=== PATIENT | female | born 1960 | race Caucasian/White ===

== ENCOUNTER 2023-07-25 22:00 | Emergency (ER) | payer MEDICARE, MEDICAID, SELFPAY ==
--- NOTE | ~2023-07-25 | XR_ITS ---
EXAMINATION: XR KNEE, RIGHT CLINICAL INFORMATION: Pain COMPARISON: None available. TECHNIQUE: Four views of the right knee. FINDINGS: The bone mineralization is normal. The joint spaces are maintained. There is no fracture. There is no significant joint effusion. XR/XR knee RT 2V IMPRESSION: No significant abnormality identified.
[2023-07-25 23:18] VITALS: BP 124/53; PULSE 79; RESP 18; TEMP 36.6; O2SAT 96; BMI 29.1
--- NOTE | 2023-07-26 00:31 | ED_ITS ---
HPI - Extremity Problem General Chief complaint: Extremity Problem Stated complaint: R knee swelling Time Seen by Provider: 07/26/23 00:17 Source: patient Mode of arrival: ambulatory Limitations: no limitations History of Present Illness HPI Narrative: 63 yo female with HTN, anxiety/depression, R knee arthritis used to see [facility] last steroid injection 2 years ago comes in with aches to R knee for 1 week no new trauma fevers, swelling could not get comfortable last night. Wants ortho referral and steroid injection MD Complaint: joint pain Onset (ago): month(s) Pain Consistency: intermittent Location: right and knee Quality: aching and dull Radiation: none Relieving factors: immobilization Exacerbating factors: walking and exertion Associated symptoms: denies other symptoms Context: other (arthritis) Related Data Previous Rx's Medication Instructions Recorded tramadol 50 mg tablet 50 mg PO BID PRN pain #14 tabs 07/26/23 Allergies Allergy/AdvReac Type Severity Reaction Status Date / Time No Known Allergies Allergy Unverified 08/02/20 15:54 Review of Systems Review of Systems: Constitutional : No Fever, No Chills Cardiovascular : No Chest Pain, No SOB Respiratory : No Cough, No Dyspnea Gastrointestinal : No Nausea, No Vomiting, No Diarrhea, No abdominal Pain Musculoskeletal : positive joint pain, No Myalgias, No Joint Swelling Skin : No Skin lacerations, No rash Neuro : No Weakness, No Numbness, No Loss of Consciousness, No Dizziness, No Headache Psych : No Anxiety/Panic, No Depression All other systems reviewed and are negative [facility] Past Medical History Attestation statement: The following information was validated with the patient. Medical History (Updated 07/26/23 @ 00:45 by Pinky White DO) HTN (hypertension) Anxiety Arthritis Social History Social History (Updated 07/26/23 @ 00:45 by Pinky White DO) Patient Tobacco Use Status: Tobacco use Unknown Physical Exam Vital Signs: Vital Signs: Last Vital Signs Temp 97.8 F 07/25/23 23:18 Pulse 79 07/25/23 23:18 Resp 18 07/25/23 23:18 BP 124/53 L 07/25/23 23:18 Pulse Ox 96 07/25/23 23:18 O2 Del Method Room Air 07/25/23 23:18 BMI result Body Mass Index 29.1 Appearance: Alert. Oriented X3. No acute distress. Eyes: Pupils equal, round and reactive to light. ENT: Pharynx normal. Neck: Normal inspection. Neck supple. CVS: Normal heart rate and rhythm. Pulses normal. Respiratory: No respiratory distress. Breath sounds normal. Abdomen: Soft and nontender. Skin: Skin warm and dry. Normal skin color. Normal skin turgor. Extremities: nonpitting lower extremity edema. R knee no joint effusion redness or warmth reports ttp along medial joint line and patella Neuro: Oriented X 3. No motor deficit. No sensory deficit. Medical Decision Making Medical Decision Making MDM Narrative: 63 yo female with PMH of HTN, anxiety depression here with chronic R knee pain - no signs of infection, distal NV intact - doubt DVT no calf pain she really wants pain control and ortho referral. xray normal will start on PRN tramadol and refer to orthopedics. no hx of seizures given tramadol. Differential Diagnosis Differential Diagnoses: The differential diagnosis associated with the presentation includes arthritis, sprain, effusion Independent Interpretation I performed an independent interpretation of an: Plain X-Ray (no fracture) Radiology Impression Discussion of test interpretation with radiology: I have reviewed the radiologist's reading. Prescription Management I considered prescription management with: Pain Medication Discharge Plan Discharge Clinical Impression: Arthralgia of knee, right Patient Disposition: Home, Self-Care Instructions: Knee Pain (ED), Arthralgia (ED) Additional Instructions: return for fevers, swelling, increased pain, dizziness, vomiting or any other concerns. your xray showed no acute findings. Prescriptions: New tramadol 50 mg tablet 50 mg PO BID PRN (Reason: pain) Qty: 14 0RF Referrals: Latosha Bruce PA-C [[facility]] - (orthopedics office )
[2023-07-26 01:26] VITALS: BP 126/75; PULSE 84; RESP 18; O2SAT 99
--- NOTE | 2023-07-26 01:31 | PC.NURSE ---
RN did not backtime the worklist information entered.
== END 2023-07-26 00:46 | disposition home or self-care (01) ==
PROVIDERS: Emergency Provider Emergency Medicine; PCP Internal Medicine
DX: M25.561 Pain in right knee (principal); M25.461 Effusion, right knee
CPT/HCPCS: 73560; 99283